=== PATIENT | female | born 1955 | race Two or more races ===

== ENCOUNTER 2024-03-20 20:45 | Inpatient (IN) | payer OTHER, MEDICARE ==
[~2024-03-20] VITALS: Ht 157.5 cm; Wt 81.6 kg
[2024-03-20] MEDS ORDERED: HYDROCODONE/APAP 5/325MG TABLET ONE (21:44)
[2024-03-20] MEDS: HYDROCODONE/APAP 5/325MG TABLET PO ONE (21:52)
[2024-03-20] MEDS ORDERED: LIDO700A30 TP (22:34)
[2024-03-21] MEDS ORDERED: MAG HYDROX/AL HYDROX/SIMETH 30 ML UDC PO PRN (00:30)
[2024-03-21] MEDS ORDERED: Z GUARD REMEDY 4 OZ OINT TP PRN (00:30)
[2024-03-21 02:32] VITALS: BP_SYST 107; TEMP 97.2; O2SAT 94
[2024-03-21 03:03] VITALS: BP 101/72; TEMP 98; O2SAT 99
[2024-03-21 08:00] VITALS: BP 90/60; TEMP 97.5; O2SAT 96
[2024-03-21] MEDS: PANTOPRAZOLE 40 MG TABLET.DR PO SCH (08:11)
[2024-03-21] MEDS: ACETAMINOPHEN 325 MG TABLET PO PRN (08:22)
[2024-03-21] MEDS ORDERED: CARI350T27 PO (10:02)
[2024-03-21] MEDS ORDERED: OMEP20CA15 PO (10:02)
[2024-03-21] MEDS ORDERED: ESCI20TA PO (10:02)
[2024-03-21] MEDS ORDERED: LEVO-148 PO (10:02)
[2024-03-21] MEDS ORDERED: LORA-258 PO (10:02)
[2024-03-21] MEDS ORDERED: GABA-532 PO (10:02)
[2024-03-21] MEDS ORDERED: BUPR1FIL24 SL (10:02)
[2024-03-21] MEDS ORDERED: APIX5TAB PO (10:02)
[2024-03-21] MEDS ORDERED: PREG50CA PO (10:02)
[2024-03-21] MEDS: HYDROCODONE/APAP 5/325MG TABLET PO PRN (10:19)
[2024-03-21] MEDS ORDERED: [UNRECOGNIZED DRUG - OTHER] SL SCH (12:00)
[2024-03-21] MEDS ORDERED: BUPRENORPHINE HCL SL SCH (12:00)
[2024-03-21] MEDS ORDERED: NALOXONE HCL SL SCH (12:00)
[2024-03-21] MEDS: LEVOTHYROXINE SODIUM 125 MCG TABLET PO SCH (12:25)
[2024-03-21] MEDS: CARISOPRODOL 350 MG TABLET PO SCH (12:25)
[2024-03-21] MEDS: ESCITALOPRAM OXALATE (10 MG) 10 MG TABLET PO SCH (12:25)
[2024-03-21] MEDS ORDERED: PREGABALIN 25 MG CAPSULE PO SCH (13:00)
[2024-03-21] MEDS: APIXABAN 5 MG TABLET PO SCH (14:08)
[2024-03-21] MEDS: GABAPENTIN 100 MG CAPSULE PO SCH (14:08)
[2024-03-21 15:19] LABS: CALCIUM, SERUM 7.7 mg/dL (8.5-10.1); CREATININE 0.9 mg/dL (0.6-1.3); POTASSIUM 4.5 mmol/L (3.5-5.1)
[2024-03-21 16:00] VITALS: BP 96/47; TEMP 97.4; O2SAT 96
[2024-03-21 20:00] VITALS: BP 102/59; TEMP 98.8; O2SAT 95
[2024-03-21 20:18] VITALS: BP 102/59; TEMP 98.8; O2SAT 95
[2024-03-21] MEDS: LIDOCAINE 5% (PATCH) 1 EA PATCH TP PRN (23:03)
[2024-03-22] VITALS (9 sets, daily range): BP systolic 84–122; BP diastolic 45–90; TEMP 98.6–100; O2SAT 80–100
[2024-03-22 02:11] LABS: ABG BASE EXCESS 0.3 mmol/L (-2.0-3.0); ABG OXYGEN SATURATION 93.7 % (94.0-98.0); ABG PCO2 42.2 mmHg (32.0-45.0); ABG PH 7.395 (7.350-7.450); ABG PO2 443.6 mmHg (83.0-108.0); ABG TOTAL HEMOGLOBIN 11.5 G/dL (12.0-16.0); COHb 0.1 % (0.5-1.5); O2Hb 93.6 % (94.0-97.0); SITE, ABG LEFT BRACHIAL
[2024-03-22] MEDS ORDERED: ALBUTEROL FS 2.5 MG/3 ML VIAL.NEB NEB STA (02:23)
[2024-03-22] MEDS: LORAZEPAM 0.5 MG TABLET PO PRN (02:42)
[2024-03-22] MEDS ORDERED: LEVALBUTEROL HCL NEB 1.25 MG/0.5 ML VIAL.NEB NEB PRN (03:00)
[2024-03-22] MEDS ORDERED: IPRATROPIUM NEB FS 0.5 MG/2.5 ML AMPUL.NEB NEB PRN (03:00)
[2024-03-22] MEDS: LEVALBUTEROL HCL NEB 1.25 MG/0.5 ML VIAL.NEB NEB STA (04:09)
[2024-03-22] MEDS: IPRATROPIUM NEB FS 0.5 MG/2.5 ML AMPUL.NEB NEB STA (04:09)
[2024-03-22 07:56] LABS: BASOPHILS % (AUTO) 0.3 % (0.0-2.0); EOSINOPHILS % (AUTO) 0.8 % (0.0-6.0); HEMATOCRIT 32 % (33-45); HEMOGLOBIN 10.3 g/dL (11.5-14.8); LYMPHOCYTES # (AUTO) 0.4 K/uL (0.8-4.8); LYMPHOCYTES % (AUTO) 7.2 % (20.0-44.0); MEAN CORPUSCULAR HEMOGLOBIN 30 PG (26.0-33.0); MEAN CORPUSCULAR HGB CONC 32 g/dl (31.0-36.0); MEAN CORPUSCULAR VOLUME 92 fL (82-100); MONOCYTES # (AUTO) 0.6 K/uL (0.1-1.30); MONOCYTES % (AUTO) 9.9 % (2.0-12.0); NEUTROPHILS % (AUTO) 81.8 % (43.0-81.0); PLATELET COUNT (AUTO) 137 K/uL (150-450); RED BLOOD CELL COUNT(AUTO) 3.48 MIL/uL (4.0-5.2); RED CELL DISTRIBUTION WIDTH 22.1 % (11.5-15.0); WHITE BLOOD COUNT (AUTO) 6.2 K/uL (4.3-11.0)
[2024-03-22 08:03] LABS: ALBUMIN 2.5 g/dL (3.4-5.0); BILIRUBIN,DIRECT 0.3 mg/dL (0.0-0.2); BILIRUBIN,TOTAL 0.6 mg/dL (0.2-1.0); CREATININE 0.8 mg/dL (0.6-1.3); MAGNESIUM 2.4 mg/dL (1.8-2.4); PHOSPHORUS 3.7 mg/dL (2.5-4.9); POTASSIUM 4.3 mmol/L (3.5-5.1); TOTAL PROTEIN, SERUM 5.4 g/dL (6.4-8.2)
[2024-03-22 08:14] LABS: THYROID STIMULATING HORMONE 2.74 uIU/mL (0.358-3.74)
[2024-03-22] MEDS: PANTOPRAZOLE 40 MG TABLET.DR PO SCH (08:34)
[2024-03-22 08:44] LABS: ANISOCYTOSIS 1+; PLATELET ESTIMATE DECREASED
[2024-03-22 08:45] LABS: OVALOCYTES 1+
[2024-03-22 12:25] LABS: LACTIC ACID 2.3 mmol/L (0.4-2.0)
[2024-03-22 14:39] LABS: APPEARANCE,URINE SLIGHTLY CLOUDY (CLEAR); BILIRUBIN,URINE NEGATIVE (NEGATIVE); BLOOD, URINE 2+ Ery/uL (NEGATIVE); COLOR,URINE YELLOW (YELLOW); KETONES,URINE NEGATIVE (NEGATIVE); LEUKOCYTE ESTERASE ,URINE TRACE (NEGATIVE); NITRITE, URINE POSITIVE (NEGATIVE); PROTEIN,URINE NEGATIVE (NEGATIVE); UGLUCOSE NEGATIVE (NEGATIVE); UROBILINOGEN,URINE 0.2 EU/dL (0.2)
[2024-03-22 14:56] LABS: ADD URINE CULTURE YES; BACTERIA,URINE 1+ /HPF (None Seen); SQUAMOUS EPITHELIAL CELL,UR Few /HPF (None Seen)
[2024-03-22] MEDS: LEVOFLOXACIN 500 MG /D5W 100ML 500 MG in PREMIX 1 EA IV SCH (21:21)
[2024-03-23] VITALS: BP 107/70; TEMP 98.1; O2SAT 97
[2024-03-23 04:00] VITALS: BP 122/64; TEMP 98.4; O2SAT 97
[2024-03-23 08:00] VITALS: BP 126/80; TEMP 98.4; O2SAT 97
[2024-03-23 11:11] VITALS: BP 126/80; TEMP 98.4; O2SAT 97
[2024-03-23] MEDS: MAGNESIUM HYDROXIDE 30 ML UDC PO PRN (11:36)
[2024-03-23] MEDS ORDERED: KETOROLAC TROMETHAMINE 15 MG/ML VIAL IV PRN (12:30)
[2024-03-23 16:00] VITALS: BP_SYST 126; BP_SYST 148; BP_DIAS 100; BP_DIAS 80; TEMP 98.4; TEMP 98.6; O2SAT 95; O2SAT 97
[2024-03-23 20:00] VITALS: BP 142/98; TEMP 97.8; O2SAT 96
[2024-03-24 07:21] LABS: BASOPHILS % (AUTO) 0.4 % (0.0-2.0); EOSINOPHILS # (AUTO) 0.1 K/uL (0.0-0.7); EOSINOPHILS % (AUTO) 1.9 % (0.0-6.0); HEMATOCRIT 35 % (33-45); HEMOGLOBIN 11.5 g/dL (11.5-14.8); LYMPHOCYTES # (AUTO) 0.8 K/uL (0.8-4.8); LYMPHOCYTES % (AUTO) 13.3 % (20.0-44.0); MEAN CORPUSCULAR HEMOGLOBIN 30 PG (26.0-33.0); MEAN CORPUSCULAR HGB CONC 33 g/dl (31.0-36.0); MEAN CORPUSCULAR VOLUME 91 fL (82-100); MONOCYTES # (AUTO) 0.7 K/uL (0.1-1.30); MONOCYTES % (AUTO) 11.1 % (2.0-12.0); NEUTROPHILS # (AUTO) 4.6 K/uL (1.8-8.9); NEUTROPHILS % (AUTO) 73.3 % (43.0-81.0); PLATELET COUNT (AUTO) 123 K/uL (150-450); RED BLOOD CELL COUNT(AUTO) 3.88 MIL/uL (4.0-5.2); RED CELL DISTRIBUTION WIDTH 22.2 % (11.5-15.0); WHITE BLOOD COUNT (AUTO) 6.2 K/uL (4.3-11.0)
[2024-03-24 07:47] LABS: CALCIUM, SERUM 8.5 mg/dL (8.5-10.1); CREATININE 0.8 mg/dL (0.6-1.3); MAGNESIUM 2.1 mg/dL (1.8-2.4); PHOSPHORUS 3.3 mg/dL (2.5-4.9); POTASSIUM 4.3 mmol/L (3.5-5.1)
[2024-03-24 08:00] VITALS: BP 156/96; TEMP 97.9; O2SAT 98
[2024-03-24 08:15] VITALS: BP 156/96; TEMP 97.7; O2SAT 97
[2024-03-24] MEDS: ONDANSETRON HCL/PF 4 MG/2 ML VIAL IVP PRN (09:38)
[2024-03-24 15:59] VITALS: BP_SYST 143; BP_SYST 156; BP_DIAS 96; BP_DIAS 98; TEMP 97.7; O2SAT 97
[2024-03-24 16:00] VITALS: BP 143/98; TEMP 97.9; O2SAT 98
[2024-03-24 20:00] VITALS: BP 140/95; TEMP 98.6; O2SAT 95
[2024-03-24] MEDS: QUETIAPINE FUMARATE 25 MG TABLET PO SCH (21:05)
[2024-03-25] VITALS (7 sets, daily range): BP systolic 118–144; BP diastolic 61–100; TEMP 97.9–98.4; O2SAT 65–98
[2024-03-25 06:00] LABS: BASOPHILS % (AUTO) 0.3 % (0.0-2.0); EOSINOPHILS # (AUTO) 0.2 K/uL (0.0-0.7); EOSINOPHILS % (AUTO) 3.7 % (0.0-6.0); HEMATOCRIT 33 % (33-45); HEMOGLOBIN 10.8 g/dL (11.5-14.8); LYMPHOCYTES # (AUTO) 1.1 K/uL (0.8-4.8); LYMPHOCYTES % (AUTO) 19.3 % (20.0-44.0); MEAN CORPUSCULAR HEMOGLOBIN 30 PG (26.0-33.0); MEAN CORPUSCULAR HGB CONC 33 g/dl (31.0-36.0); MEAN CORPUSCULAR VOLUME 92 fL (82-100); MONOCYTES # (AUTO) 0.6 K/uL (0.1-1.30); MONOCYTES % (AUTO) 11.4 % (2.0-12.0); NEUTROPHILS # (AUTO) 3.7 K/uL (1.8-8.9); NEUTROPHILS % (AUTO) 65.3 % (43.0-81.0); PLATELET COUNT (AUTO) 116 K/uL (150-450); RED BLOOD CELL COUNT(AUTO) 3.62 MIL/uL (4.0-5.2); RED CELL DISTRIBUTION WIDTH 21.8 % (11.5-15.0); WHITE BLOOD COUNT (AUTO) 5.7 K/uL (4.3-11.0)
[2024-03-25 06:13] LABS: CALCIUM, SERUM 8.2 mg/dL (8.5-10.1); CREATININE 0.6 mg/dL (0.6-1.3); MAGNESIUM 2.1 mg/dL (1.8-2.4); PHOSPHORUS 3.4 mg/dL (2.5-4.9); POTASSIUM 4.4 mmol/L (3.5-5.1)
[2024-03-25] MEDS: LEVOFLOXACIN (250MG) 250 MG TABLET PO SCH (17:39)
[2024-03-26 05:02] VITALS: O2SAT 97
[2024-03-26 08:00] VITALS: BP 141/92; TEMP 97.9; O2SAT 96
[2024-03-26] MEDS: NITROFURANTOIN/MONOHYDRATE MACROCRYSTALS 100 MG CAPSULE PO SCH (09:06)
[2024-03-26 16:00] VITALS: BP 146/114; TEMP 97.9; O2SAT 95
[2024-03-26 20:00] VITALS: BP 141/91; TEMP 97.7; O2SAT 95; O2SAT 98
[2024-03-27 05:10] VITALS: O2SAT 98
[2024-03-27 07:00] VITALS: BP 135/88; TEMP 97.5; O2SAT 95
[2024-03-27 16:00] VITALS: BP 135/88; TEMP 98.4; O2SAT 95
[2024-03-28 08:00] VITALS: BP 138/78; TEMP 98.2; O2SAT 94
[2024-03-28] MEDS ORDERED: NITR100C15 PO (08:44)
[2024-03-28] MEDS ORDERED: QUET25TA PO (08:44)
[2024-03-28] MEDS ORDERED: NALOXONE HCL SL (14:05)
[2024-03-28] MEDS ORDERED: BUPRENORPHINE HCL SL (14:05)
[2024-03-29 08:00] VITALS: BP 156/100; TEMP 98.4; O2SAT 98
[2024-03-29] MEDS: CARISOPRODOL 350 MG TABLET PO SCH (18:51)
[2024-03-29 20:00] VITALS: BP 134/83; TEMP 97.3; O2SAT 96
[2024-03-30 07:30] VITALS: BP 115/82; TEMP 98.4; O2SAT 97
[2024-03-31 07:00] VITALS: BP 144/85; TEMP 97.9; O2SAT 98
[2024-03-31 16:00] VITALS: BP_SYST 123; BP_SYST 134; BP_DIAS 72; BP_DIAS 74; TEMP 98.4; O2SAT 95; O2SAT 96
[2024-03-31 20:36] VITALS: BP 149/92; TEMP 98.2; O2SAT 99
[2024-04-01 08:00] VITALS: BP 146/85; TEMP 99.3; O2SAT 97
[2024-04-01 16:00] VITALS: BP 140/83; TEMP 98; O2SAT 97
[2024-04-01 20:00] VITALS: BP 129/82; TEMP 97.9; O2SAT 96
[2024-04-02 08:00] VITALS: BP 144/85; TEMP 98.2; O2SAT 96
[2024-04-02 16:00] VITALS: BP 119/68; TEMP 98.1; O2SAT 97
[2024-04-02 20:00] VITALS: BP 127/87; TEMP 98.1; O2SAT 96
[2024-04-03 08:00] VITALS: BP 160/100; TEMP 99.1; O2SAT 97
[2024-04-03] MEDS ORDERED: IOHEXOL-350 100 ML VIAL IV ONE (11:41)
[2024-04-03] MEDS ORDERED: CT SWABBABLE VALVE TRANS SET 1 EA INFUS.SET MC ONE (11:41)
[2024-04-03 12:22] LABS: BASOPHILS # (AUTO) 0.1 K/uL (0.0-0.2); BASOPHILS % (AUTO) 1.1 % (0.0-2.0); EOSINOPHILS # (AUTO) 0.1 K/uL (0.0-0.7); EOSINOPHILS % (AUTO) 2.2 % (0.0-6.0); HEMATOCRIT 36 % (33-45); HEMOGLOBIN 11.8 g/dL (11.5-14.8); LYMPHOCYTES # (AUTO) 1.5 K/uL (0.8-4.8); LYMPHOCYTES % (AUTO) 24.3 % (20.0-44.0); MEAN CORPUSCULAR HEMOGLOBIN 31 PG (26.0-33.0); MEAN CORPUSCULAR HGB CONC 33 g/dl (31.0-36.0); MEAN CORPUSCULAR VOLUME 94 fL (82-100); MONOCYTES # (AUTO) 0.5 K/uL (0.1-1.30); MONOCYTES % (AUTO) 7.4 % (2.0-12.0); PLATELET COUNT (AUTO) 247 K/uL (150-450); RED BLOOD CELL COUNT(AUTO) 3.86 MIL/uL (4.0-5.2); RED CELL DISTRIBUTION WIDTH 20.6 % (11.5-15.0); WHITE BLOOD COUNT (AUTO) 6.1 K/uL (4.3-11.0)
[2024-04-03 13:07] LABS: ALBUMIN 2.9 g/dL (3.4-5.0); BILIRUBIN,DIRECT 0.1 mg/dL (0.0-0.2); BILIRUBIN,TOTAL 0.3 mg/dL (0.2-1.0); CALCIUM, SERUM 7.7 mg/dL (8.5-10.1); CREATININE 0.8 mg/dL (0.6-1.3); POTASSIUM 4.4 mmol/L (3.5-5.1)
[2024-04-03 16:00] VITALS: BP 148/100; TEMP 99; O2SAT 97
[2024-04-03 20:00] VITALS: BP 126/72; TEMP 97.9; O2SAT 95
[2024-04-04 06:19] LABS: BASOPHILS % (AUTO) 0.7 % (0.0-2.0); EOSINOPHILS # (AUTO) 0.2 K/uL (0.0-0.7); EOSINOPHILS % (AUTO) 3.1 % (0.0-6.0); HEMATOCRIT 38 % (33-45); HEMOGLOBIN 12.2 g/dL (11.5-14.8); LYMPHOCYTES # (AUTO) 1.2 K/uL (0.8-4.8); MEAN CORPUSCULAR HEMOGLOBIN 31 PG (26.0-33.0); MEAN CORPUSCULAR HGB CONC 32 g/dl (31.0-36.0); MEAN CORPUSCULAR VOLUME 95 fL (82-100); MONOCYTES # (AUTO) 0.4 K/uL (0.1-1.30); MONOCYTES % (AUTO) 6.2 % (2.0-12.0); NEUTROPHILS # (AUTO) 3.9 K/uL (1.8-8.9); PLATELET COUNT (AUTO) 233 K/uL (150-450); WHITE BLOOD COUNT (AUTO) 5.7 K/uL (4.3-11.0)
[2024-04-04 06:40] LABS: CALCIUM, SERUM 8.6 mg/dL (8.5-10.1); CREATININE 0.8 mg/dL (0.6-1.3); MAGNESIUM 2.4 mg/dL (1.8-2.4); PHOSPHORUS 4.6 mg/dL (2.5-4.9); POTASSIUM 4.6 mmol/L (3.5-5.1)
[2024-04-04 08:00] VITALS: BP 137/86; TEMP 98.6; O2SAT 97
[2024-04-04 16:00] VITALS: BP 133/75; TEMP 98.8; O2SAT 97
== END 2024-04-04 17:00 | DRG 554 ==
LOC: ER 20:48 → MED 03-21 01:16 → TELE 03-22 03:38 → MED 03-23 11:22
PROVIDERS: ADMIT Nurse Practitioner Family; ATTEND Internal Medicine
DX: M16.11 Unilateral primary osteoarthritis, right hip (principal); N39.0 Urinary tract infection, site not specified; E44.0 Moderate protein-calorie malnutrition; E87.0 Hyperosmolality and hypernatremia; I48.20 Chronic atrial fibrillation, unspecified; T74.91XA Unspecified adult maltreatment, confirmed, initial encounter; F33.3 Major depressive disorder, recurrent, severe with psychotic symptoms; E66.9 Obesity, unspecified; J44.9 Chronic obstructive pulmonary disease, unspecified; W01.0XXA Fall on same level from slipping, tripping and stumbling without subsequent striking against object, initial encounter; E03.9 Hypothyroidism, unspecified; E78.00 Pure hypercholesterolemia, unspecified; Z86.73 Personal history of transient ischemic attack (TIA), and cerebral infarction without residual deficits; I50.9 Heart failure, unspecified; E78.5 Hyperlipidemia, unspecified; Z88.8 Allergy status to other drugs, medicaments and biological substances; Z91.010 Allergy to peanuts; Z88.1 Allergy status to other antibiotic agents; Z91.013 Allergy to seafood; Y92.129 Unspecified place in nursing home as the place of occurrence of the external cause; Z68.32 Body mass index [BMI] 32.0-32.9, adult; E88.09 Other disorders of plasma-protein metabolism, not elsewhere classified; Z79.01 Long term (current) use of anticoagulants; F43.10 Post-traumatic stress disorder, unspecified; X58.XXXA Exposure to other specified factors, initial encounter; Y92.9 Unspecified place or not applicable; R26.81 Unsteadiness on feet; B96.89 Other specified bacterial agents as the cause of diseases classified elsewhere; Z79.890 Hormone replacement therapy; Z79.899 Other long term (current) drug therapy
CPT/HCPCS: 36415; 36600; 70450-TC; 70496-TC; 70498-TC; 71045-TC; 73502; 80048-TC; 80053-TC; 80061-TC; 80076-TC; 81001; 82803-TC; 82962-TC; 83605-TC; 83735-TC; 84100-TC; 84443-TC; 85025-TC; 87081-TC; 87086-TC; 92507-TC; 92521; 93307-TC; 94760-TC; 94761-TC; 94799-TC; 97110-TC; 97112-TC; 97116-TC; 97530-TC; 97535-TC; A4216; A4223; G0378; J1956; J2405; J7030; J7040; Q9967

== ENCOUNTER 2024-05-01 16:28 | Emergency (ER) | payer OTHER ==
[~2024-05-01] VITALS: Ht 157.5 cm; Wt 79.4 kg
[~2024-05-01 16:28] MED LIST: APIX5TAB PO; BUPRENORPHINE HCL SL; CARI350T27 PO; ESCI20TA PO; GABA-532 PO; IODOPHOR BNOSTRILS; LEVO-148 PO; LIDO700A30 TP; LORA-258 PO; NALOXONE HCL SL; OMEP20CA15 PO; QUET25TA PO
[2024-05-01 17:51] LABS: BASOPHILS % (AUTO) 0.6 % (0.0-2.0); EOSINOPHILS # (AUTO) 0.1 K/uL (0.0-0.7); EOSINOPHILS % (AUTO) 3.6 % (0.0-6.0); HEMATOCRIT 35 % (33-45); HEMOGLOBIN 11.3 g/dL (11.5-14.8); LYMPHOCYTES # (AUTO) 1.2 K/uL (0.8-4.8); LYMPHOCYTES % (AUTO) 35.1 % (20.0-44.0); MEAN CORPUSCULAR HEMOGLOBIN 31 PG (26.0-33.0); MEAN CORPUSCULAR HGB CONC 32 g/dl (31.0-36.0); MEAN CORPUSCULAR VOLUME 96 fL (82-100); MONOCYTES # (AUTO) 0.3 K/uL (0.1-1.30); MONOCYTES % (AUTO) 8.8 % (2.0-12.0); NEUTROPHILS # (AUTO) 1.8 K/uL (1.8-8.9); NEUTROPHILS % (AUTO) 51.9 % (43.0-81.0); PLATELET COUNT (AUTO) 147 K/uL (150-450); RED BLOOD CELL COUNT(AUTO) 3.69 MIL/uL (4.0-5.2); RED CELL DISTRIBUTION WIDTH 16.6 % (11.5-15.0); WHITE BLOOD COUNT (AUTO) 3.5 K/uL (4.3-11.0)
[2024-05-01 18:04] LABS: CALCIUM, SERUM 7.6 mg/dL (8.5-10.1); POTASSIUM 4.5 mmol/L (3.5-5.1)
[2024-05-01] MEDS ORDERED: HYDROCODONE/APAP 5/325MG TABLET ONE (19:02)
[2024-05-01] MEDS: HYDROCODONE/APAP 5/325MG TABLET PO ONE (19:10)
[2024-05-01] MEDS ORDERED: ACET325T53 PO (19:37)
[2024-05-01] MEDS ORDERED: MULT-213 PO (19:37)
[2024-05-01] MEDS ORDERED: IPRA0.2S49 IH (19:37)
[2024-05-01] MEDS ORDERED: BACL10TA PO (19:37)
[2024-05-01] MEDS ORDERED: BISA10SU11 RC (19:37)
[2024-05-01] MEDS ORDERED: BUPR1FIL SL (19:37)
[2024-05-01] MEDS ORDERED: MAG-55 PO (19:37)
[2024-05-01] MEDS ORDERED: MAGN400O6 GT (19:37)
[2024-05-01] MEDS ORDERED: PREG-57 PO (19:37)
[2024-05-01] MEDS ORDERED: LEVA0.6320 IH (19:37)
[2024-05-01] MEDS ORDERED: QUET25TA PO (19:37)
[2024-05-01] MEDS ORDERED: PANT40TA49 PO (19:37)
[2024-05-01] MEDS ORDERED: DOCU100C36 PO (19:37)
[2024-05-01] MEDS ORDERED: ZINC454O5 TP (19:37)
[2024-05-01] MEDS ORDERED: LIDO30AD10 TP (19:37)
[2024-05-01] MEDS ORDERED: NA P133E RC (19:37)
[2024-05-01] MEDS ORDERED: ONDA4TAB5 PO (19:37)
[2024-05-01 20:23] VITALS: BP 141/80; TEMP 98.2; O2SAT 96
== END 2024-05-01 20:24 | disposition home or self-care (01) ==
LOC: ER 16:36
DX: S00.03XA Contusion of scalp, initial encounter (principal); M54.2 Cervicalgia; E78.5 Hyperlipidemia, unspecified; F32.A Depression, unspecified; G44.309 Post-traumatic headache, unspecified, not intractable; I48.91 Unspecified atrial fibrillation; I50.9 Heart failure, unspecified; I67.82 Cerebral ischemia; J44.9 Chronic obstructive pulmonary disease, unspecified; Z79.01 Long term (current) use of anticoagulants; Z79.899 Other long term (current) drug therapy; Z86.73 Personal history of transient ischemic attack (TIA), and cerebral infarction without residual deficits; Z88.1 Allergy status to other antibiotic agents; W18.30XA Fall on same level, unspecified, initial encounter; Y93.89 Activity, other specified; Y92.89 Other specified places as the place of occurrence of the external cause; Y99.8 Other external cause status
CPT/HCPCS: 99285; 72125; 93005; 70450; 85025; 80048; 36415; J7040

== ENCOUNTER 2024-05-16 16:31 | Emergency (ER) | payer OTHER ==
[~2024-05-16] VITALS: Ht 165.1 cm; Wt 73.9 kg
[~2024-05-16 16:31] MED LIST changes: +ACET325T53 PO; +BACL10TA PO; +BISA10SU11 RC; +BUPR1FIL SL; -BUPRENORPHINE HCL SL; -CARI350T27 PO; +DOCU100C36 PO; -GABA-532 PO; +IPRA0.2S49 IH; +LEVA0.6320 IH; +LIDO30AD10 TP; -LIDO700A30 TP; +MAG-55 PO; +MAGN400O6 GT; +MULT-213 PO; +NA P133E RC; -NALOXONE HCL SL; -OMEP20CA15 PO; +ONDA4TAB5 PO; +PANT40TA49 PO; +PREG-57 PO; +ZINC454O5 TP
[2024-05-16 17:24] LABS: BASOPHILS % (AUTO) 0.6 % (0.0-2.0); EOSINOPHILS # (AUTO) 0.1 K/uL (0.0-0.7); EOSINOPHILS % (AUTO) 3.1 % (0.0-6.0); HEMATOCRIT 34 % (33-45); HEMOGLOBIN 10.9 g/dL (11.5-14.8); LYMPHOCYTES # (AUTO) 1.5 K/uL (0.8-4.8); LYMPHOCYTES % (AUTO) 33.6 % (20.0-44.0); MEAN CORPUSCULAR HEMOGLOBIN 31 PG (26.0-33.0); MEAN CORPUSCULAR HGB CONC 32 g/dl (31.0-36.0); MEAN CORPUSCULAR VOLUME 97 fL (82-100); MONOCYTES # (AUTO) 0.5 K/uL (0.1-1.30); MONOCYTES % (AUTO) 11.5 % (2.0-12.0); NEUTROPHILS # (AUTO) 2.3 K/uL (1.8-8.9); NEUTROPHILS % (AUTO) 51.2 % (43.0-81.0); PLATELET COUNT (AUTO) 131 K/uL (150-450); RED BLOOD CELL COUNT(AUTO) 3.49 MIL/uL (4.0-5.2); RED CELL DISTRIBUTION WIDTH 16.3 % (11.5-15.0); WHITE BLOOD COUNT (AUTO) 4.6 K/uL (4.3-11.0)
[2024-05-16] MEDS ORDERED: ONDANSETRON HCL/PF 4 MG/2 ML VIAL ONE (17:24)
[2024-05-16] MEDS ORDERED: MORPHINE SULFATE INJ 2 MG/ML DISP.SYRIN ONE (17:25)
[2024-05-16] MEDS: ONDANSETRON HCL/PF 4 MG/2 ML VIAL IVP ONE (17:29)
[2024-05-16] MEDS: IV NS 0.9% 1,000 ML BAG IV ONE (17:29)
[2024-05-16] MEDS: MORPHINE SULFATE INJ 2 MG/ML DISP.SYRIN IV ONE (17:30)
[2024-05-16 17:52] LABS: CREATININE 0.9 mg/dL (0.6-1.3); POTASSIUM 4.4 mmol/L (3.5-5.1)
[2024-05-16 17:57] LABS: ALBUMIN 2.8 g/dL (3.4-5.0); BILIRUBIN,DIRECT 0.3 mg/dL (0.0-0.2); BILIRUBIN,TOTAL 0.7 mg/dL (0.2-1.0); TOTAL PROTEIN, SERUM 5.5 g/dL (6.4-8.2)
[2024-05-16 18:10] LABS: APPEARANCE,URINE Slightly Cloudy (CLEAR); BILIRUBIN,URINE Negative (NEGATIVE); BLOOD, URINE Negative Ery/uL (NEGATIVE); COLOR,URINE YELLOW (YELLOW); KETONES,URINE Negative (NEGATIVE); LEUKOCYTE ESTERASE ,URINE Negative (NEGATIVE); NITRITE, URINE Negative (NEGATIVE); PROTEIN,URINE Negative (NEGATIVE); UGLUCOSE Negative (NEGATIVE)
[2024-05-16 18:20] VITALS: TEMP 98.4
[2024-05-16 18:41] LABS: ADD URINE CULTURE NO; BACTERIA,URINE Rare /HPF (None Seen); RBC,URINE 0-2 /HPF (0-2); SQUAMOUS EPITHELIAL CELL,UR Few /HPF (None Seen)
[2024-05-16 23:44] VITALS: BP 132/90; O2SAT 97
== END 2024-05-16 21:04 | disposition home or self-care (01) ==
LOC: ER 16:34
DX: R10.84 Generalized abdominal pain (principal); E66.01 Morbid (severe) obesity due to excess calories; E78.5 Hyperlipidemia, unspecified; F32.A Depression, unspecified; I50.9 Heart failure, unspecified; J44.9 Chronic obstructive pulmonary disease, unspecified; K43.9 Ventral hernia without obstruction or gangrene; Z79.01 Long term (current) use of anticoagulants; Z79.899 Other long term (current) drug therapy; Z86.73 Personal history of transient ischemic attack (TIA), and cerebral infarction without residual deficits; Z87.440 Personal history of urinary (tract) infections; Z88.1 Allergy status to other antibiotic agents; Z98.84 Bariatric surgery status
CPT/HCPCS: 99285; 74176; 96374; 96361; 96375; 85025; 80048; 83690; 80076; 81001; 36415; J2405; J7030; J2270

== ENCOUNTER 2024-06-28 16:08 | Inpatient (IN) | payer OTHER ==
[~2024-06-28] VITALS: Ht 165.1 cm; Wt 74.8 kg
[~2024-06-28 16:08] MED LIST changes: -MAGN400O6 GT; +MAGN400O6 PO
[2024-06-28 18:31] LABS: ABG BASE EXCESS 0.5 mmol/L (-2.0-3.0); ABG OXYGEN SATURATION 88.6 % (94.0-98.0); ABG PH 7.384 (7.350-7.450); ABG PO2 64.9 mmHg (83.0-108.0); ABG TOTAL HEMOGLOBIN 9.5 G/dL (12.0-16.0); COHb 0.2 % (0.5-1.5); O2Hb 88.4 % (94.0-97.0); SITE, ABG LEFT RADIAL
[2024-06-28] MEDS ORDERED: LACT10SO5 PO (18:44)
[2024-06-28] MEDS ORDERED: DULO20CA PO (18:44)
[2024-06-28] MEDS ORDERED: CLON0.1T PO (18:44)
[2024-06-28] MEDS ORDERED: METO-295 PO (18:44)
[2024-06-28] MEDS ORDERED: METO50TA16 PO (18:44)
[2024-06-28] MEDS ORDERED: ZOLP5TAB2 PO (18:44)
[2024-06-28] MEDS ORDERED: LOSA100T31 PO (18:44)
[2024-06-28] MEDS ORDERED: IPRA3AMP22 IH (18:44)
[2024-06-28 18:51] LABS: BASOPHILS % (AUTO) 0.3 % (0.0-2.0); EOSINOPHILS # (AUTO) 0.1 K/uL (0.0-0.7); EOSINOPHILS % (AUTO) 1.1 % (0.0-6.0); HEMATOCRIT 30 % (33-45); HEMOGLOBIN 9.8 g/dL (11.5-14.8); LYMPHOCYTES # (AUTO) 0.9 K/uL (0.8-4.8); LYMPHOCYTES % (AUTO) 14.3 % (20.0-44.0); MEAN CORPUSCULAR HEMOGLOBIN 31 PG (26.0-33.0); MEAN CORPUSCULAR HGB CONC 33 g/dl (31.0-36.0); MEAN CORPUSCULAR VOLUME 96 fL (82-100); MONOCYTES # (AUTO) 0.6 K/uL (0.1-1.30); MONOCYTES % (AUTO) 10.5 % (2.0-12.0); NEUTROPHILS # (AUTO) 4.5 K/uL (1.8-8.9); NEUTROPHILS % (AUTO) 73.8 % (43.0-81.0); PLATELET COUNT (AUTO) 151 K/uL (150-450); RED BLOOD CELL COUNT(AUTO) 3.15 MIL/uL (4.0-5.2); RED CELL DISTRIBUTION WIDTH 15.5 % (11.5-15.0); WHITE BLOOD COUNT (AUTO) 6.1 K/uL (4.3-11.0)
[2024-06-28] MEDS: CEFEPIME 1 GM in IV D5W 50 ML IV ONE (19:00)
[2024-06-28 19:19] LABS: CALCIUM, SERUM 7.9 mg/dL (8.5-10.1); CARBON DIOXIDE 33 mmol/L (21-32); CHLORIDE 106 mmol/L (98-107); CREATININE 0.7 mg/dL (0.6-1.3); GLUCOSE 184 mg/dL (74-106); SODIUM SERUM 142 mmol/L (136-145); UREA NITROGEN, BLOOD 17 mg/dL (7-18)
[2024-06-28] MEDS: VANCOMYCIN 1 GM in IV D5W 250 ML IV ONE (19:30)
[2024-06-28 19:39] LABS: LACTIC ACID 2.6 mmol/L (0.4-2.0)
[2024-06-28 19:48] LABS: ALANINE AMINOTRANSFERASE 36 U/L (12-78); ALBUMIN 2.7 g/dL (3.4-5.0); ALKALINE PHOSPHATASE 114 U/L (46-116); ASPARTATE AMINOTRANSFERASE 31 U/L (15-37); BILIRUBIN,DIRECT 0.2 mg/dL (0.0-0.2); BILIRUBIN,TOTAL 0.3 mg/dL (0.2-1.0); TOTAL PROTEIN, SERUM 5.9 g/dL (6.4-8.2)
[2024-06-28] MEDS ORDERED: CLONIDINE HCL 0.1 MG TABLET PO PRN (20:00)
[2024-06-28] MEDS ORDERED: LACTULOSE 10 G/15 ML UDC (PYXIS) PO PRN (20:00)
[2024-06-28] MEDS ORDERED: ONDANSETRON HCL/PF 4 MG/2 ML VIAL IVP PRN (20:00)
[2024-06-28] MEDS ORDERED: ZOLPIDEM TARTRATE 5 MG TABLET PO PRN (20:00)
[2024-06-28] MEDS ORDERED: MAGNESIUM HYDROXIDE 30 ML UDC PO PRN (20:00)
[2024-06-28] MEDS ORDERED: MAG HYDROX/AL HYDROX/SIMETH 30 ML UDC PO PRN (20:00)
[2024-06-28] MEDS ORDERED: Z GUARD REMEDY 4 OZ OINT TP PRN (20:00)
[2024-06-28] MEDS ORDERED: APIXABAN 5 MG TABLET PO SCH (21:00)
[2024-06-28] MEDS ORDERED: ACETAMINOPHEN ES 500 MG TABLET ONE (21:02)
[2024-06-28] MEDS: ACETAMINOPHEN ES 500 MG TABLET PO ONE (21:03)
[2024-06-28] MEDS ORDERED: QUETIAPINE FUMARATE 25 MG TABLET PO SCH (22:00)
[2024-06-28 23:30] VITALS: BP 107/62; TEMP 97.5; O2SAT 96
[2024-06-28] MEDS ORDERED: ALBUTEROL FS 2.5 MG/3 ML VIAL.NEB NEB PRN (23:45)
[2024-06-29] VITALS (9 sets, daily range): BP systolic 89–108; BP diastolic 48–70; TEMP 97.3–98.1; O2SAT 96–99
[2024-06-29] MEDS: QUETIAPINE FUMARATE 25 MG TABLET PO SCH (00:36)
[2024-06-29] MEDS: APIXABAN 5 MG TABLET PO SCH (00:38)
[2024-06-29] MEDS: ACETAMINOPHEN 325 MG TABLET PO PRN (00:40)
[2024-06-29] MEDS: IPRATROPIUM NEB FS 0.5 MG/2.5 ML AMPUL.NEB NEB SCH (00:46)
[2024-06-29] MEDS: ALBUTEROL FS 2.5 MG/3 ML VIAL.NEB NEB SCH (00:47)
[2024-06-29] MEDS ORDERED: VANCOMYCIN 1 GM in IV D5W 250ml IV SCH (07:00)
[2024-06-29 07:34] LABS: BASOPHILS % (AUTO) 0.4 % (0.0-2.0); EOSINOPHILS # (AUTO) 0.1 K/uL (0.0-0.7); EOSINOPHILS % (AUTO) 2.9 % (0.0-6.0); HEMATOCRIT 28 % (33-45); LYMPHOCYTES # (AUTO) 1.4 K/uL (0.8-4.8); LYMPHOCYTES % (AUTO) 30.7 % (20.0-44.0); MEAN CORPUSCULAR HEMOGLOBIN 31 PG (26.0-33.0); MEAN CORPUSCULAR HGB CONC 33 g/dl (31.0-36.0); MEAN CORPUSCULAR VOLUME 95 fL (82-100); MONOCYTES # (AUTO) 0.5 K/uL (0.1-1.30); MONOCYTES % (AUTO) 11.6 % (2.0-12.0); NEUTROPHILS # (AUTO) 2.5 K/uL (1.8-8.9); NEUTROPHILS % (AUTO) 54.4 % (43.0-81.0); PLATELET COUNT (AUTO) 148 K/uL (150-450); RED BLOOD CELL COUNT(AUTO) 2.93 MIL/uL (4.0-5.2); RED CELL DISTRIBUTION WIDTH 15.3 % (11.5-15.0); WHITE BLOOD COUNT (AUTO) 4.5 K/uL (4.3-11.0)
[2024-06-29 08:04] LABS: CALCIUM, SERUM 7.5 mg/dL (8.5-10.1); CREATININE 0.6 mg/dL (0.6-1.3); MAGNESIUM 2.2 mg/dL (1.8-2.4); PHOSPHORUS 4.4 mg/dL (2.5-4.9)
[2024-06-29] MEDS: LEVOTHYROXINE SODIUM 125 MCG TABLET PO SCH (08:26)
[2024-06-29] MEDS: DOCUSATE SODIUM 100 MG CAPSULE PO SCH (08:26)
[2024-06-29] MEDS: DULOXETINE HCL 20 MG CAPSULE.DR PO SCH (08:27)
[2024-06-29] MEDS: ESCITALOPRAM OXALATE (10 MG) 10 MG TABLET PO SCH (08:27)
[2024-06-29] MEDS: PREGABALIN 25 MG CAPSULE PO SCH (08:28)
[2024-06-29] MEDS: MULTIVIT W/MINERALS 1 TAB TABLET PO SCH (08:28)
[2024-06-29] MEDS: METOPROLOL TARTRATE 50 MG TABLET PO SCH (08:28)
[2024-06-29] MEDS: LOSARTAN POTASSIUM 50 MG TABLET PO SCH (08:28)
[2024-06-29] MEDS: BACLOFEN (10 MG) 10 MG TABLET PO SCH (08:29)
[2024-06-29] MEDS: METOCLOPRAMIDE HCL 10 MG TABLET PO SCH (08:29)
[2024-06-29] MEDS: VANCOMYCIN 1 GM in IV D5W 250ml IV SCH (09:22)
[2024-06-29] MEDS: CEFEPIME 1 GM in IV D5W 50 ML IV SCH (21:37)
[2024-06-30] VITALS (10 sets, daily range): BP systolic 104–112; BP diastolic 62–75; TEMP 97.2–107; O2SAT 94–100
[2024-07-01] VITALS (8 sets, daily range): BP systolic 104–139; BP diastolic 75; TEMP 97.2–97.9; O2SAT 95–100
[2024-07-01 00:43] LABS: CALCIUM, SERUM 7.7 mg/dL (8.5-10.1)
[2024-07-01 08:14] LABS: CALCIUM, SERUM 8.1 mg/dL (8.5-10.1); CREATININE 0.8 mg/dL (0.6-1.3); POTASSIUM 4.7 mmol/L (3.5-5.1)
[2024-07-01] MEDS ORDERED: VANCOMYCIN 750 MG in IV D5W 250 ML IV SCH (12:00)
== END 2024-07-01 14:30 | disposition home health service (06) | DRG 177 ==
LOC: ER 16:43 → MED 23:24
PROVIDERS: ADMIT Nurse Practitioner Acute Care; ATTEND Internal Medicine
DX: J15.69 Pneumonia due to other Gram-negative bacteria (principal); J96.01 Acute respiratory failure with hypoxia; J96.02 Acute respiratory failure with hypercapnia; J44.1 Chronic obstructive pulmonary disease with (acute) exacerbation; E44.0 Moderate protein-calorie malnutrition; J44.0 Chronic obstructive pulmonary disease with (acute) lower respiratory infection; E87.20 Acidosis, unspecified; I48.20 Chronic atrial fibrillation, unspecified; Z20.822 Contact with and (suspected) exposure to COVID-19; Z86.73 Personal history of transient ischemic attack (TIA), and cerebral infarction without residual deficits; E78.5 Hyperlipidemia, unspecified; E03.9 Hypothyroidism, unspecified; D63.8 Anemia in other chronic diseases classified elsewhere; Z88.8 Allergy status to other drugs, medicaments and biological substances; Z88.1 Allergy status to other antibiotic agents; Z91.010 Allergy to peanuts; Z91.013 Allergy to seafood; Z79.51 Long term (current) use of inhaled steroids; Z79.899 Other long term (current) drug therapy; Z79.01 Long term (current) use of anticoagulants; Z79.890 Hormone replacement therapy; R79.89 Other specified abnormal findings of blood chemistry; E88.09 Other disorders of plasma-protein metabolism, not elsewhere classified; Z79.891 Long term (current) use of opiate analgesic; I50.9 Heart failure, unspecified; F41.9 Anxiety disorder, unspecified; F29 Unspecified psychosis not due to a substance or known physiological condition; Z87.891 Personal history of nicotine dependence
CPT/HCPCS: 36415; 71045-TC; 80048-TC; 80076-TC; 80202-TC; 83605-TC; 83735-TC; 84100-TC; 85025-TC; 87040-TC; 87081-TC; 94760-TC; 94799-TC; 97110-TC; 97116-TC; 97530-TC; G0378; J0692; J3370; J3371; J7050; J7060; J8597

== ENCOUNTER 2024-07-09 20:07 | Emergency (ER) | payer OTHER ==
[~2024-07-09] VITALS: Ht 154.9 cm; Wt 70.3 kg
[~2024-07-09 20:07] MED LIST changes: +CLON0.1T PO; +DULO20CA PO; -IODOPHOR BNOSTRILS; -IPRA0.2S49 IH; +IPRA3AMP22 IH; +LACT10SO5 PO; -LIDO30AD10 TP; -LORA-258 PO; +LOSA100T31 PO; +METO-295 PO; +METO50TA16 PO; -ONDA4TAB5 PO; -PANT40TA49 PO; -ZINC454O5 TP; +ZOLP5TAB2 PO
[2024-07-09 21:13] LABS: BASOPHILS % (AUTO) 0.6 % (0.0-2.0); EOSINOPHILS # (AUTO) 0.2 K/uL (0.0-0.7); EOSINOPHILS % (AUTO) 3.6 % (0.0-6.0); HEMATOCRIT 33 % (33-45); HEMOGLOBIN 10.7 g/dL (11.5-14.8); LYMPHOCYTES # (AUTO) 2.1 K/uL (0.8-4.8); LYMPHOCYTES % (AUTO) 35.1 % (20.0-44.0); MEAN CORPUSCULAR HEMOGLOBIN 31 PG (26.0-33.0); MEAN CORPUSCULAR HGB CONC 32 g/dl (31.0-36.0); MEAN CORPUSCULAR VOLUME 96 fL (82-100); MONOCYTES # (AUTO) 0.7 K/uL (0.1-1.30); NEUTROPHILS % (AUTO) 49.7 % (43.0-81.0); PLATELET COUNT (AUTO) 194 K/uL (150-450); RED BLOOD CELL COUNT(AUTO) 3.49 MIL/uL (4.0-5.2); RED CELL DISTRIBUTION WIDTH 16.3 % (11.5-15.0); WHITE BLOOD COUNT (AUTO) 6.1 K/uL (4.3-11.0)
[2024-07-09 21:23] LABS: CREATININE 0.8 mg/dL (0.6-1.3); POTASSIUM 5.1 mmol/L (3.5-5.1)
[2024-07-09 21:30] LABS: ALBUMIN 2.7 g/dL (3.4-5.0); BILIRUBIN,DIRECT 0.1 mg/dL (0.0-0.2); BILIRUBIN,TOTAL 0.3 mg/dL (0.2-1.0); TOTAL PROTEIN, SERUM 5.9 g/dL (6.4-8.2)
[2024-07-09] MEDS ORDERED: ONDANSETRON HCL/PF 4 MG/2 ML VIAL ONE (21:59)
[2024-07-09] MEDS ORDERED: HYDROMORPHONE 1 MG/1 ML DISP.SYRIN ONE (21:59)
[2024-07-09] MEDS: ONDANSETRON HCL/PF - ER 4 MG/2 ML VIAL IV ONE (22:41)
[2024-07-09] MEDS: HYDROMORPHONE 1 MG/1 ML DISP.SYRIN IV ONE (22:41)
[2024-07-09 23:02] LABS: APPEARANCE,URINE CLEAR (CLEAR); BILIRUBIN,URINE NEGATIVE (NEGATIVE); BLOOD, URINE NEGATIVE Ery/uL (NEGATIVE); COLOR,URINE YELLOW (YELLOW); KETONES,URINE NEGATIVE (NEGATIVE); LEUKOCYTE ESTERASE ,URINE NEGATIVE (NEGATIVE); NITRITE, URINE POSITIVE (NEGATIVE); PROTEIN,URINE 2+ mg/dl (NEGATIVE); UGLUCOSE NEGATIVE (NEGATIVE); UROBILINOGEN,URINE 0.2 EU/dL (0.2)
[2024-07-10 00:12] LABS: ADD URINE CULTURE YES; BACTERIA,URINE 4+ /HPF (None Seen); MUCUS,URINE Moderate /LPF (None Seen); RBC,URINE 0-2 /HPF (0-2)
[2024-07-10] MEDS ORDERED: NITROFURANTOIN/MONOHYDRATE MACROCRYSTALS 100 MG CAPSULE ONE (01:03)
[2024-07-10] MEDS: NITROFURANTOIN/MONOHYDRATE MACROCRYSTALS 100 MG CAPSULE PO ONE (01:07)
[2024-07-10 01:50] VITALS: BP 106/62; TEMP 98; O2SAT 99
== END 2024-07-10 01:51 | disposition home or self-care (01) ==
LOC: ER 20:09
DX: K43.9 Ventral hernia without obstruction or gangrene (principal); R10.32 Left lower quadrant pain; E78.5 Hyperlipidemia, unspecified; I50.9 Heart failure, unspecified; J44.9 Chronic obstructive pulmonary disease, unspecified; Z79.899 Other long term (current) drug therapy; Z86.73 Personal history of transient ischemic attack (TIA), and cerebral infarction without residual deficits; Z88.1 Allergy status to other antibiotic agents
CPT/HCPCS: 99285; 74176; 96374; 96375; 85025; 80048; 83690; 80076; 81001; 36415; J1171; J2405 ×2

== ENCOUNTER 2025-05-25 20:32 | Emergency (ER) | payer MEDICARE, OTHER ==
[~2025-05-25] VITALS: Ht 154.9 cm; Wt 70.3 kg
[2025-05-25 22:16] LABS: APPEARANCE,URINE CLEAR (CLEAR); BLOOD, URINE NEGATIVE Ery/uL (NEGATIVE); LEUKOCYTE ESTERASE ,URINE NEGATIVE (NEGATIVE); NITRITE, URINE POSITIVE (NEGATIVE); UGLUCOSE NEGATIVE (NEGATIVE)
[2025-05-25 22:28] LABS: ADD URINE CULTURE YES; SQUAMOUS EPITHELIAL CELL,UR Few /HPF (None Seen); YEAST,URINE None Seen /HPF (None Seen)
[2025-05-25] MEDS ORDERED: NITR100C6 PO (22:31)
[2025-05-25] MEDS ORDERED: NITROFURANTOIN/MONOHYDRATE MACROCRYSTALS 100 MG CAPSULE ONE (22:36)
[2025-05-25] MEDS: NITROFURANTOIN/MONOHYDRATE MACROCRYSTALS 100 MG CAPSULE PO ONE (22:40)
[2025-05-25 22:55] VITALS: BP 127/79; TEMP 98.2; O2SAT 95
== END 2025-05-25 22:57 ==
LOC: ER 20:42
DX: N39.0 Urinary tract infection, site not specified (principal); E78.5 Hyperlipidemia, unspecified; Z86.73 Personal history of transient ischemic attack (TIA), and cerebral infarction without residual deficits; Z88.1 Allergy status to other antibiotic agents; Z91.010 Allergy to peanuts; Z91.013 Allergy to seafood; Z79.899 Other long term (current) drug therapy
CPT/HCPCS: 81001; 87086-TC; 87186-TC